=== PATIENT | male | born 1970 | race Caucasian/White ===

== ENCOUNTER → 2017-08-08 | Outpatient (CLI) | payer BC, MEDICAID ==
[~2017-08-08] MED LIST: CELL500T PO; CYMB1CAP5 PO; GEMF600T PO; LYRI150C PO; METF500T13 PO
--- NOTE | 2017-08-09 12:04 | REP ---
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 Whole-body scanning is performed from skull base to the upper thighs. Neck and supraclavicular areas: There are no hypermetabolic foci. This is unchanged. Chest: The hypermetabolic uptake related to the 4th thoracic vertebra and fourth rib posterior arch has significantly decreased . The maximal standard uptake value in the vertebra today is 4.3. This was previously 14.9. The the maximal standard uptake value in the rib today is 3.4. This was previously 7.9. Abdomen, pelvis and upper thighs: There are no hypermetabolic foci. This is unchanged. There is artifactual uptake in the left antecubital fossa as a consequence of radiotracer effusion. Impression: The uptake in the patient's known lesion in the 4th thoracic vertebra and left fourth rib has significantly decreased. No new foci are identified. The study is performed with 10 mCi of F 18 FDG. Signed by August Valverde MD 08/09/2017 11:56 A
== END ==
LOC: M PLARAD 13:29
PROVIDERS: ATTEND Internal Medicine Hematology
DX: C90.30 Solitary plasmacytoma not having achieved remission (principal)
CPT/HCPCS: 78815; A9552

== ENCOUNTER → 2017-11-30 | Outpatient (REF) | payer MEDICAID ==
[2017-11-30 12:51] LABS: TESTOSTERONE 205 NG/DL (241-827)
[2017-11-30 12:51] LABS: CORTISOL AM 9.3 UG/DL (4.3-22.4); PROLACTIN 8.6 NG/ML (2.1-17.7)
[2017-11-30 12:52] LABS: LUTEINIZING HORMONE 9.5 mIU/mL (1.5-9.3)
[2017-11-30 13:02] LABS: FOLLICLE STIMULATING HORMONE 28.4 mIU/mL (1.4-18.1)
[2017-12-05 10:13] LABS: TESTOSTERONE %FREE+WEAKLY BOUN 15.8 % (9.0-46.0); TESTOSTERONE FREE+WEAKLY BOUND 31.8 ng/dL (40.0-250.0); TESTOSTERONE TOTAL 201 ng/dL (264-916)
== END ==
LOC: M LABDRAW1 10:50
DX: E29.1 Testicular hypofunction (principal)
CPT/HCPCS: 83001

== ENCOUNTER → 2017-12-21 | Outpatient (REF) | payer MEDICAID ==
[2017-12-21 15:50] LABS: HEMOGLOBIN 12.4 g/dl (14.0-18.0); MEAN CORPUSCULAR HEMOGLOBIN 30.3 pg (27.0-33.0); MEAN CORPUSCULAR HGB CONC 31.8 g/dl (32.0-36.5); MEAN CORPUSCULAR VOLUME 95.4 fl (80.0-96.0); PLATELET COUNT, AUTOMATED 164 10^3/uL (150-450); RED BLOOD COUNT 4.09 10^6/uL (4.30-6.10); RED CELL DISTRIBUTION WIDTH 13.4 % (11.5-14.5); WHITE BLOOD COUNT 5.3 10^3/uL (4.0-10.0)
[2017-12-21 16:09] LABS: PROSTATIC SPECIFIC AG MONITOR 0.73 NG/ML (< 4.0)
== END ==
LOC: M LABDRAW1 13:31
DX: E29.1 Testicular hypofunction (principal)
CPT/HCPCS: 84153

== ENCOUNTER → 2018-08-07 | Outpatient (CLI) | payer OTHER, SELFPAY, MEDICAID | LOC: M PLARAD 07:33 | DX: C90.30 Solitary plasmacytoma not having achieved remission (principal); K76.0 Fatty (change of) liver, not elsewhere classified | CPT/HCPCS: 78815 ==

== ENCOUNTER → 2019-03-22 | Outpatient (REF) | payer MEDICARE ==
[~2019-03-22] MED LIST changes: -GEMF600T PO; +GEMF600T5 PO
== END ==
LOC: M SFHCLERA 20:30
PROVIDERS: ATTEND Physician Assistant
DX: R39.15 Urgency of urination (principal)
CPT/HCPCS: 81002; 87086; G0463

== ENCOUNTER → 2019-04-23 | Outpatient (CLI) | payer MEDICARE ==
--- NOTE | 2019-04-23 12:47 | REP ---
PET/CT: HISTORY: POEMS syndrome. Rising vascular endothelial growth factor level. Comparisons: Comparison PET-CT study, August 07, 2018. TECHNIQUE: 58 minutes following the intravenous injection of a 9.64 mCi dose of F-18 FDG, three-dimensional PET scintigraphy is acquired from the skull vertex to the toes. Triplanar noncontrast CT scanning is acquired through the same anatomic range for attenuation correction, and image registration with scan parameters optimized to minimize radiation exposure to the patient. PET scintigraphy and CT datasets were fused and displayed on a workstation with multiplanar and projection display capability. PET/CT FINDINGS: There is no abnormal hypermetabolic uptake in the lower extremity on either side. No abnormal head and neck uptake is seen. The mixed lytic and sclerotic expansile lesion in the posterior left 4th rib at is again seen and is morphologically unchanged. This is associated with similar changes within the T4 vertebral body. These are also unchanged. There is no abnormal hypermetabolic uptake within this lesion. Maximum standard uptake value today is 2.59. No other abnormal skeletal hypermetabolic uptake is seen. No abnormal intrathoracic hypermetabolic uptake is seen. No abnormal abdominal or pelvic hypermetabolic uptake is appreciated. No pulmonary nodule or infiltrate is appreciated. IMPRESSION: Stable left posterior 4th rib and T4 thoracic vertebral body lesions. No hypermetabolic uptake is associated with these lesions. No abnormal hypermetabolic uptake is seen elsewhere. Electronically Signed by Alok Rowe MD 04/23/2019 04:55 P
== END ==
LOC: M PLARAD 08:23
DX: C90.30 Solitary plasmacytoma not having achieved remission (principal); E88.09 Other disorders of plasma-protein metabolism, not elsewhere classified
CPT/HCPCS: 78815; A9552

== ENCOUNTER → 2022-12-26 | Outpatient (CLI) | payer OTHER | LOC: M PLARAD 13:31 | PROVIDERS: ATTEND Internal Medicine Hematology | DX: C90.30 Solitary plasmacytoma not having achieved remission (principal) | CPT/HCPCS: 78816; A9552 ==

== ENCOUNTER → 2024-09-25 | Outpatient (CLI) | payer OTHER | LOC: M PLARAD 09:49 | PROVIDERS: ATTEND Family Medicine | DX: C25.2 Malignant neoplasm of tail of pancreas (principal) | CPT/HCPCS: 78815; A9552 ==

== ENCOUNTER → 2024-10-03 | Outpatient (CLI) | payer OTHER ==
[~2024-10-03] MED LIST changes: +GABA-1635; +GLIP5TAB20; +LIDOCAINE 1% MDV 20ML VIAL As Ordered ONE; +METF10004; +ROPI0.5T33; +SIMV20TA22; +TRAZ-252
[2024-10-03 12:50] VITALS: BP 146/76; O2SAT 92
[2024-10-03 13:32] LABS: BASO % 0.5 % (0.0-1.0); EOS # 0.2 10^3/uL (0.0-0.5); EOS % 2.7 % (0.0-3.0); HEMATOCRIT 43.5 % (42.0-52.0); HEMOGLOBIN 14.8 g/dl (13.5-17.5); LYMPH # 1.3 10^3/uL (1.5-5.0); LYMPH % 18.2 % (24.0-44.0); MEAN CORPUSCULAR HEMOGLOBIN 30.7 pg (27.0-33.0); MEAN CORPUSCULAR VOLUME 90.2 fl (80.0-96.0); MONO # 0.5 10^3/uL (0.0-0.8); MONO % 6.3 % (2.0-8.0); NEUTROPHILS # 5.2 10^3/uL (1.5-8.5); NEUTROPHILS % 71.3 % (36.0-66.0); PLATELET COUNT, AUTOMATED 155 10^3/uL (150-450); RED BLOOD COUNT 4.82 10^6/uL (4.30-6.10); WHITE BLOOD COUNT 7.4 10^3/uL (4.0-10.0)
== END ==
LOC: M IRPRO 12:08
PROVIDERS: ATTEND Specialist
DX: K86.9 Disease of pancreas, unspecified (principal)

== ENCOUNTER → 2024-12-05 | Outpatient (CLI) | payer OTHER ==
[~2024-12-05] MED LIST changes: +ISOVUE-370 76% 100ML VIAL As Ordered ONE; +LANTINJ4 SC; -LIDOCAINE 1% MDV 20ML VIAL As Ordered ONE
== END ==
LOC: M RAD 16:11
PROVIDERS: ATTEND Specialist
DX: C25.2 Malignant neoplasm of tail of pancreas (principal); K76.89 Other specified diseases of liver
CPT/HCPCS: 74177; Q9967

== ENCOUNTER → 2024-12-05 | Outpatient (REF) | payer OTHER ==
[~2024-12-05] MED LIST changes: -ISOVUE-370 76% 100ML VIAL As Ordered ONE
[2024-12-05 16:35] LABS: BASO # 0.1 10^3/uL (0.0-0.2); BASO % 0.9 % (0.0-1.0); EOS # 0.3 10^3/uL (0.0-0.5); EOS % 3.3 % (0.0-3.0); HEMATOCRIT 43.4 % (42.0-52.0); HEMOGLOBIN 14.7 g/dl (13.5-17.5); LYMPH # 1.5 10^3/uL (1.5-5.0); LYMPH % 20.5 % (24.0-44.0); MEAN CORPUSCULAR HEMOGLOBIN 30.2 pg (27.0-33.0); MEAN CORPUSCULAR HGB CONC 33.9 g/dl (32.0-36.5); MEAN CORPUSCULAR VOLUME 89.3 fl (80.0-96.0); MONO # 0.5 10^3/uL (0.0-0.8); MONO % 6.3 % (2.0-8.0); NEUTROPHILS # 5.1 10^3/uL (1.5-8.5); NEUTROPHILS % 67.9 % (36.0-66.0); PLATELET COUNT, AUTOMATED 181 10^3/uL (150-450); RED BLOOD COUNT 4.86 10^6/uL (4.30-6.10); WHITE BLOOD COUNT 7.5 10^3/uL (4.0-10.0)
[2024-12-05 17:08] LABS: ALBUMIN 4.1 G/DL (3.2-5.2); ALKALINE PHOSPHATASE 96 U/L (40-129); ALT/SGPT 25 U/L (7.0-40); AST/SGOT 15 U/L (<34); BILIRUBIN,TOTAL 0.4 MG/DL (0.3-1.2); BLOOD UREA NITROGEN 13 MG/DL (9-23); CALCIUM LEVEL 9.9 MG/DL (8.5-10.1); CARBON DIOXIDE LEVEL 31 MMOL/L (20-31); CHLORIDE LEVEL 100 MMOL/L (98-107); CREATININE FOR GFR 0.78 MG/DL (0.70-1.30); GLOMERULAR FILTRATION RATE > 60.0 (>56); GLUCOSE, FASTING 88 MG/DL (60-100); POTASSIUM SERUM 4.1 MMOL/L (3.5-5.1); SODIUM LEVEL 143 MMOL/L (136-145); TOTAL PROTEIN 7.4 G/DL (5.7-8.2)
== END ==
LOC: M LAB REF 16:18
PROVIDERS: ATTEND Physician Assistant Medical
DX: G62.9 Polyneuropathy, unspecified (principal); D47.2 Monoclonal gammopathy; E34.9 Endocrine disorder, unspecified; R23.9 Unspecified skin changes

== ENCOUNTER → 2024-12-13 | Outpatient (CLI) | payer MEDICARE ==
[~2024-12-13] VITALS: Ht 160 cm; Wt 104.5 kg
[~2024-12-13] MED LIST changes: +ACETAMINOPHEN 325 MG TAB PO PRN; +IBUP80TA; +LIDO30CR18 TOP; +LIDOCAINE 1% MDV 20ML VIAL As Ordered ONE; +NS (Normal Saline) 0.9% 1,000 ML IV SCH; +ONDA-196 PO; +PERCOCET 5MG/325MG TAB PO PRN; +PROC5TAB57 PO
[2024-12-13 08:20] VITALS: TEMP 97.3
[2024-12-13] MEDS: ceFAZolin SODIUM 2 GM in DEXTROSE 5% (D5W) ADV/MINI-BAG 50 ML IV ONE (09:23)
[2024-12-13] MEDS: fentaNYL 100 MCG/2 ML INJECTION IV PRN (09:46)
[2024-12-13] MEDS: MIDAZOLAM INJ 2MG/2ML VIAL IV PRN (09:47)
[2024-12-13] MEDS: LIDOCAINE 1% MDV 20ML VIAL SC SCH (09:54)
[2024-12-13 12:30] VITALS: BP 140/74; O2SAT 90
== END ==
LOC: M IRPRO 08:15
PROVIDERS: ATTEND Specialist
DX: K76.0 Fatty (change of) liver, not elsewhere classified (principal); C25.9 Malignant neoplasm of pancreas, unspecified
CPT/HCPCS: 36561; 47000; 76942; 88305; 99152; 99153; C1894; J0690; J1642; J2250; J3010

== ENCOUNTER → 2025-01-03 | Outpatient (CLI) | payer MEDICARE ==
[~2025-01-03] MED LIST changes: +GLIP-318; -GLIP5TAB20
[2025-01-03 12:25] VITALS: TEMP 97.3
[2025-01-03 12:52] LABS: INR 1.04; PROTHROMBIN TIME 13.9 SECONDS (12.5-14.5)
[2025-01-03] MEDS: LIDOCAINE 1% MDV 20ML VIAL SC ONE (14:20)
[2025-01-03] MEDS: MIDAZOLAM INJ 2MG/2ML VIAL IV PRN (14:20)
[2025-01-03] MEDS: fentaNYL 100 MCG/2 ML INJECTION IV PRN (14:20)
[2025-01-03 15:00] VITALS: BP 120/59; O2SAT 95
== END ==
LOC: M IRPRO 11:44
PROVIDERS: ATTEND Radiology Diagnostic Radiology
DX: C25.9 Malignant neoplasm of pancreas, unspecified (principal); C78.7 Secondary malignant neoplasm of liver and intrahepatic bile duct
CPT/HCPCS: 47000; 77012; 85610; 88305; J1642; J2250; J3010

== ENCOUNTER → 2025-07-04 | Outpatient (CLI) | payer MEDICARE ==
[~2025-07-04] MED LIST changes: -ACETAMINOPHEN 325 MG TAB PO PRN; +ELIQ2.5T PO; +HEPARIN LOCK FLUSH 100 UNITS/ML 3 ML SYRINGE As Ordered ONE; +ISOVUE-370 76% 100 ML VIAL As Ordered ONE; -LIDOCAINE 1% MDV 20ML VIAL As Ordered ONE; +LOMO2.5T PO; -NS (Normal Saline) 0.9% 1,000 ML IV SCH; -PERCOCET 5MG/325MG TAB PO PRN; +SERT-141 PO
== END ==
LOC: M RAD 13:37
PROVIDERS: ATTEND Specialist
DX: C25.9 Malignant neoplasm of pancreas, unspecified (principal); K76.0 Fatty (change of) liver, not elsewhere classified; M99.88 Other biomechanical lesions of rib cage
CPT/HCPCS: 71260; 74160; J1642; Q9967

== ENCOUNTER → 2025-08-25 | Outpatient (CLI) | payer MEDICARE ==
[~2025-08-25] MED LIST changes: -HEPARIN LOCK FLUSH 100 UNITS/ML 3 ML SYRINGE As Ordered ONE; -ISOVUE-370 76% 100 ML VIAL As Ordered ONE; -PROC5TAB57 PO; +PROC5TAB81 PO
== END ==
LOC: M RAD 10:06
PROVIDERS: ATTEND Specialist
DX: C25.2 Malignant neoplasm of tail of pancreas (principal)

== ENCOUNTER → 2025-09-18 | Outpatient (CLI) | payer MEDICARE ==
[~2025-09-18] MED LIST changes: +ISOVUE-370 76% 100 ML VIAL ONE; +LOPE1CAP5 PO; +MAGICMW SSP
== END ==
LOC: M PLAIMG 09:10
DX: C25.9 Malignant neoplasm of pancreas, unspecified (principal); R93.89 Abnormal findings on diagnostic imaging of other specified body structures; R93.2 Abnormal findings on diagnostic imaging of liver and biliary tract
CPT/HCPCS: 71260; 74177; Q9967

== ENCOUNTER → 2025-09-29 | Outpatient (CLI) | payer MEDICARE ==
[~2025-09-29] MED LIST changes: -ISOVUE-370 76% 100 ML VIAL ONE
== END ==
LOC: M PLARAD 11:32
DX: C25.2 Malignant neoplasm of tail of pancreas (principal)
CPT/HCPCS: 78815; A9552

== ENCOUNTER → 2025-10-03 | Outpatient (REF) | payer MEDICARE ==
[2025-10-03 10:16] LABS: BASO # 0.1 10^3/uL (0.0-0.2); BASO % 0.6 % (0.0-1.0); EOS # 0.1 10^3/uL (0.0-0.5); EOS % 0.9 % (0.0-3.0); LYMPH # 1.2 10^3/uL (1.5-5.0); LYMPH % 8.4 % (24.0-44.0); MONO # 0.8 10^3/uL (0.0-0.8); MONO % 5.9 % (2.0-8.0); NEUTROPHILS # 11.5 10^3/uL (1.5-8.5); NEUTROPHILS % 82.3 % (36.0-66.0)
[2025-10-03 10:28] LABS: PLATELET COUNT, AUTOMATED 98 10^3/uL (150-450)
[2025-10-03 11:17] LABS: ALT/SGPT 30 U/L (7.0-40); AST/SGOT 23 U/L (<34); CA19-9 TUMOR MARKER,CARBOHYDRA 287.8 U/ML (<35.0); CALCIUM LEVEL 8.9 MG/DL (8.5-10.1); CARBON DIOXIDE LEVEL 30 MMOL/L (20-31); CHLORIDE LEVEL 102 MMOL/L (98-107); CREATININE FOR GFR 0.83 MG/DL (0.70-1.30); GLOMERULAR FILTRATION RATE > 90.0 (>56); POTASSIUM SERUM 4.2 MMOL/L (3.5-5.1); SODIUM LEVEL 142 MMOL/L (136-145)
[2025-10-04 13:53] LABS: T P ELECTROPHORESIS SO 6.2 g/dL (6.1-8.1)
[2025-10-06 12:42] LABS: FREE KAPPA LIGHT CHAINS SERUM 17.1 mg/L (3.3-19.4); FREE LAMBDA LIGHT CHAINS SERUM 15.7 mg/L (5.7-26.3); KAPPA/LAMBDA RATIO SERUM 1.09 (0.26-1.65)
[2025-10-06 18:33] LABS: ALBUMIN SPEP 3.9 g/dL (3.8-4.8); ALPHA-1-GLOBULINS SO 0.4 g/dL (0.2-0.3); ALPHA-2-GLOBULINS SO 0.6 g/dL (0.5-0.9); BETA 2 GLOBULIN 0.3 g/dL (0.2-0.5); BETA-GLOBULIN SO 0.4 g/dL (0.4-0.6); GAMMA GLOBULINS SO 0.5 g/dL (0.8-1.7)
== END ==
LOC: M LAB REF 09:17
PROVIDERS: ATTEND Physician Assistant Medical
DX: G62.9 Polyneuropathy, unspecified (principal); D47.2 Monoclonal gammopathy; E34.9 Endocrine disorder, unspecified; R23.9 Unspecified skin changes